=== PATIENT | female | born 1940 | race Caucasian/White ===

== ENCOUNTER → 2018-05-31 | Day surgery (SDC) | payer OTHER ==
[2018-05-30 15:54] LABS: BASOPHILS # (AUTO) 0.1 (0.0-0.1); BASOPHILS % 0.7 % (0.0-1.0); EOSINOPHILS # (AUTO) 0.1 (0.0-0.4); EOSINOPHILS % 0.9 % (0.0-6.0); HEMOGLOBIN 10.8 g/dL (12.0-16.0); LYMPHOCYTES # (AUTO) 2.3 (1.0-3.2); LYMPHOCYTES % 30.4 % (18.0-39.1); MEAN CORPUSCULAR HEMOGLOBIN 30.4 pg (28-32); MEAN CORPUSCULAR HGB CONC 32.7 g/dL (31-35); MONOCYTES # (AUTO) 0.7 (0.2-0.8); MONOCYTES % 8.8 % (4.4-11.3); NEUTROPHILS # (AUTO) 4.4 (2.1-6.9); NEUTROPHILS % 58.9 % (38.7-80.0); PLATELET COUNT 261 x10e3/uL (140-360); RED BLOOD COUNT 3.55 x10e6/uL (3.6-5.1); RED CELL DISTRIBUTION WIDTH 13.2 % (11.7-14.4)
--- NOTE | 2018-05-30 16:21 | Diagnostic Imaging Report ---
PROCEDURE: Frontal and lateral views of the chest. COMPARISON: None available. INDICATIONS: PREOP CARPAL TUNNEL FINDINGS: Lines/tubes: None. Lungs: The lungs are well inflated and clear. There is no evidence of pneumonia or pulmonary edema. Pleura: There is no pleural effusion or pneumothorax. Heart and mediastinum: The heart and the mediastinum are normal. Bones: No acute bony abnormality. Degenerative changes of thoracic spine. IMPRESSION: 1. No acute cardiopulmonary disease. Dictated by: Emmanuel Rowland M.D. on 05/30/2018 at 16:27 Electronically approved by: Emmanuel Rowland M.D. on 05/30/2018 at 16:27
[~2018-05-31] MED LIST: ADVAIR; ASPIRIN325 MG PO; BENAZEPRIL HCL10 MG PO; BUPIVACAINE HCL 0.5% INJ 30 ML VIAL INJ ONE; CEFAZOLIN SOD 1 GM VIAL ONE; DEXAMETHASONE SOD PHOS INJ 4 MG/ML VIAL ONE; FENTANYL CITRATE/PF 100MCG/2 ML INJ ONE; GLIMEPIRIDE2 MG PO; KETOROLAC TROMETHAMINE 30 MG/ML VIAL ONE; LEXAPRO10 MG PO; LIDOCAINE HCL 2% LOCAL INJ 5 ML SDV VIAL INJ ONE; LOVASTATIN40 MG PO; MORPHINE SULFATE 2 MG/ML SYR ONE; NIFEDICAL XL30 MG PO; NORCO 10-325 T1 EACH PO; NORCO 7.5-3251 EACH PO; ONDANSETRON HCL INJ 2 MG/ML VIAL ONE; PROPOFOL IV EMULSION 10 MG/ML 20 ML VIAL ONE; SEVOFLURANE INHAL SOLN 250 ML PEN BTL ONE; VENTOLIN HFA18 GM IH
[2018-05-31 09:36] VITALS: BP 120/75
--- NOTE | 2018-05-31 09:59 | Operative Report ---
DATE OF PROCEDURE: May 31, 2018 PREOPERATIVE DIAGNOSIS: Left carpal tunnel syndrome. POSTOPERATIVE DIAGNOSES 1. Left carpal tunnel syndrome. 2. Flexor tenosynovitis, left wrist. PROCEDURES 1. Left open carpal tunnel release. 2. Flexor tenosynovectomy, left wrist. ANESTHESIA: General. HISTORY: The patient is a 77-year-old female with EMG-proven left carpal tunnel syndrome. Risks, benefits and alternatives of treatment were discussed with the patient. The patient is prepared to undergo the procedure as outlined. PROCEDURE: The patient was brought to the operating theater. After the induction of adequate general inhalation anesthesia, the patient was prepped and draped in the supine position. A time out was performed by the entire operating room team. A 2.5-cm incision was marked out in the intrathenar space. The left upper extremity was exsanguinated and a tourniquet was inflated to a pressure of 250 mmHg. The incision was made through the skin and subcutaneous tissues and all venous tributaries were controlled with bipolar cautery. The incision was deepened through the palmar fascia until the transverse carpal ligament was identified. The ligament was sharply sectioned, taking care to protect and preserve the median nerve underlying it. After the complete width of the ligament had been transected, the distal volar forearm fascia was divided under direct view. Proliferative flexor tenosynovium was noticed to encompass the median nerve and this was radically excised. After performing this maneuver, the nerve was noted to lie adequately decompressed. The wound was copiously irrigated with bacteriostatic saline, closed with 5-0 nylon in an interrupted horizontal mattress fashion. A Marcaine field block was performed at the operative site. Tourniquet was deflated. All of the fingers pinked up nicely and a sterile bulking conforming bandage was applied to the hand and the wrist. A fiberglass splint was fashioned to maintain the wrist in a modest amount of extension. This was held in place with a loosely wrapped Randall wrap. The patient tolerated the procedure well and was brought to the recovery room in satisfactory condition and discharged with a postoperative instruction sheet as well as a followup appointment. Job#: [id number]
== END | disposition home or self-care (01) ==
LOC: OR 06:14
PROVIDERS: ATTEND Plastic Surgery
DX: G56.02 Carpal tunnel syndrome, left upper limb (principal); M65.842 Other synovitis and tenosynovitis, left hand; I10 Essential (primary) hypertension; J45.909 Unspecified asthma, uncomplicated; E11.9 Type 2 diabetes mellitus without complications; M19.90 Unspecified osteoarthritis, unspecified site; M81.0 Age-related osteoporosis without current pathological fracture; F41.9 Anxiety disorder, unspecified; Z01.810 Encounter for preprocedural cardiovascular examination; Z01.812 Encounter for preprocedural laboratory examination; Z01.818 Encounter for other preprocedural examination; Z96.652 Presence of left artificial knee joint
CPT/HCPCS: 25115; 36415 ×2; 71046; 82948; 85025; 93005; J0690; J1100; J1885; J2001; J2270; J2405

== ENCOUNTER → 2018-10-18 | Day surgery (SDC) | payer OTHER ==
[2018-10-12 15:16] LABS: BASOPHILS % 0.5 % (0.0-1.0); EOSINOPHILS # (AUTO) 0.3 (0.0-0.4); EOSINOPHILS % 3.4 % (0.0-6.0); HEMOGLOBIN 10.8 g/dL (12.0-16.0); LYMPHOCYTES % 34.2 % (18.0-39.1); MEAN CORPUSCULAR HEMOGLOBIN 30.3 pg (28-32); MEAN CORPUSCULAR HGB CONC 32.7 g/dL (31-35); MEAN CORPUSCULAR VOLUME 92.7 fL (81-99); MONOCYTES # (AUTO) 0.8 (0.2-0.8); MONOCYTES % 8.6 % (4.4-11.3); NEUTROPHILS # (AUTO) 4.7 (2.1-6.9); PLATELET COUNT 250 x10e3/uL (140-360); RED BLOOD COUNT 3.56 x10e6/uL (3.6-5.1); RED CELL DISTRIBUTION WIDTH 12.5 % (11.7-14.4)
[2018-10-12 15:31] LABS: ANION GAP 15.9 mmol/L (8-16); CALCIUM 9.6 mg/dL (8.4-10.2); CREATININE, SERUM 1.66 mg/dL (0.57-1.11); POTASSIUM 4.9 mmol/L (3.5-5.1)
[~2018-10-18] MED LIST changes: -BUPIVACAINE HCL 0.5% INJ 30 ML VIAL INJ ONE; +CALCIUM ACETAT667 MG PO; -CEFAZOLIN SOD 1 GM VIAL ONE; +CEFAZOLIN SOD 1 GM/D5W 50ML 50 ML IV ONE; +HYDRALAZINE HCL25 MG PO; -MORPHINE SULFATE 2 MG/ML SYR ONE
[2018-10-18 12:25] VITALS: BP 5/3
--- NOTE | 2018-10-18 13:22 | Operative Report ---
DATE OF PROCEDURE: October 18, 2018 AERODYNAMICS TEACHER: Shreyas Schwab PA-C The patient was brought to the operating room for induction of anesthesia. Throughout this case, my PA's assistance was necessary for retraction of soft tissue and positioning of the extremity. This allows for efficient and technically successful execution of the operation and is considered medically necessary. PREOPERATIVE DIAGNOSIS: Right carpal tunnel syndrome. POSTOPERATIVE DIAGNOSIS: Right carpal tunnel syndrome. PROCEDURE: Right endoscopic carpal tunnel release. INDICATIONS: The patient is a 78-year-old lady who has chronic signs and symptoms consistent with right carpal tunnel syndrome. She has failed conservative management and would like to proceed with definitive intervention. The risks and benefits of endoscopic versus open carpal tunnel release have been explained. She states she understands and wishes to proceed. PROCEDURE: The patient was brought to the operating room. She was placed under general anesthetic. Prophylactic antibiotics were given in the holding area. The upper extremity was prepped and draped in a sterile manner. A well-padded tourniquet was placed on the upper arm and inflated to 250 mmHg. An operative time out was performed. A 1-cm incision was made over the flexion crease of the wrist. The palmaris longus was retracted to the radial side of the wound. The flexor retinaculum was elevated and incised with a pair of sharp tenotomy scissors. An elevator was used to tease the tenosynovium off the undersurface of the transverse carpal ligament. Dilators were placed, and the hook of the hamate was palpated. The Micro-Aire endoscope was then placed into the carpal tunnel. The undersurface of the ligament was cleanly visualized without evidence of soft tissue interposition. The knife was deployed, and the ligament was cut from distal to proximal. Full-thickness cut was noted. The proximal retinaculum was then incised under direct visualization using a pair of blunt Metzenbaum scissors. The wound was irrigated and closed with 2 interrupted 4-0 nylon stitches. A sterile bandage was applied, and the patient was extubated. The patient was transferred to the recovery room in stable condition. Blood loss was less than 5 mL, and at the end of the procedure needle and sponge counts were correct. Job#: [id number] BABAK
== END | disposition home or self-care (01) ==
LOC: OR 06:22
PROVIDERS: ATTEND Specialist
DX: G56.01 Carpal tunnel syndrome, right upper limb (principal); J45.909 Unspecified asthma, uncomplicated; E78.5 Hyperlipidemia, unspecified; E11.22 Type 2 diabetes mellitus with diabetic chronic kidney disease; I12.9 Hypertensive chronic kidney disease with stage 1 through stage 4 chronic kidney disease, or unspecified chronic kidney disease; N18.9 Chronic kidney disease, unspecified; Z91.018 Allergy to other foods; Z01.810 Encounter for preprocedural cardiovascular examination; Z01.812 Encounter for preprocedural laboratory examination
CPT/HCPCS: 29848; 36415; 80048; 85025; 93005; J0690; J1100; J1885; J2001; J2405; J2704

== ENCOUNTER → 2019-11-16 | Outpatient (CLI) | payer OTHER ==
[~2019-11-16] MED LIST changes: -CEFAZOLIN SOD 1 GM/D5W 50ML 50 ML IV ONE; -DEXAMETHASONE SOD PHOS INJ 4 MG/ML VIAL ONE; -FENTANYL CITRATE/PF 100MCG/2 ML INJ ONE; -KETOROLAC TROMETHAMINE 30 MG/ML VIAL ONE; -LIDOCAINE HCL 2% LOCAL INJ 5 ML SDV VIAL INJ ONE; -ONDANSETRON HCL INJ 2 MG/ML VIAL ONE; -PROPOFOL IV EMULSION 10 MG/ML 20 ML VIAL ONE; -SEVOFLURANE INHAL SOLN 250 ML PEN BTL ONE
== END ==
LOC: RAD 12:49
PROVIDERS: ATTEND Family Medicine
DX: I35.0 Nonrheumatic aortic (valve) stenosis (principal)
CPT/HCPCS: 93306

== ENCOUNTER 2020-09-04 10:42 | Emergency (ER) | payer MEDICARE, OTHER ==
[~2020-09-04] VITALS: Ht 160 cm; Wt 77.1 kg
--- OUTSIDE RECORDS SUMMARY | 2020-09-04 11:47 | XMS REPORT | Continuity of Care Document ---
Author Author [facility] Organization [facility] Address [address] [place] [address] Phone Unavailable Care Team Providers Care Cnc Technician Name Role Phone ULYSSES GAYTAN Attkasies Unavailable Problems This patient has no known problems. Allergies, Adverse Reactions, Alerts This patient has no known allergies or adverse reactions. Medications This patient has no known medications. Procedures This patient has no known procedures. Results Test Description Test Time Test Comments Results Result Comments Source BREAST ULTRASOUND RIGHT 2020-04-18 10:40:25 - [facility] ULTRASOUND RIGHTULTRASOUND OF RIGHT BREAST: 04/17/2020CLINICAL: Abnormal mammogram. Comparison is made to exams dated 03/12/2020 mammogram and 09/11/2015 ultrasound - [facility]-. Color flow and real-time ultrasound of the right breast were performed. Quach scale images of the real-time examination were reviewed. Breast tissue has scattered fibroglandular. Targeted ultrasound d emonstrates a 5 mm septated cyst at 9:00, 7 cm from nipple correlating with the mammographic masses, benign. The rest of the right breast survey ultrasound is negative. No axillary lymphadenopathy.IMPRESSION: BENIGN There is no sonographic evidence of malignancy. Resume annual screening mammography in one year. Miguel Praks M.D. ss/:04/18/2020 10:40:25 Entry: cl - 04/18/2020 10:40:25Imaging Technologist: Missy SHIRLEY, [facility]-FWletter sent: BIRADS 1-2 Normal Ultrasound BI-RADS: 2 Benign SCR MAMM BILATERAL IFTIKHAR CAD DIGITAL 2020-03-13 08:49:41 - SCR MAMM BILATERAL IFTIKHAR CAD DIGITALBILATERAL DIGITAL SCREENING MAMMOGRAM 3D/2D WITH CAD: 03/12/2020CLINICAL: Asymptomatic. Digital breast tomosynthesis was performed in addition to routine CC and MLO views. Current mammographic images were evaluated by either a [employer] M-Vu or a [employer] ImageChecker CAD (computer aided detection system). Comparison is made to exams dated 11/11/2018 mammogram, 09/10 mammogram, and 09/14/2016 mammogram - [facility]-. There are scattered fibroglandular tissues in both breasts. Oval, circumscribed low density mass, possibly an intramammary lymph node at 9 o'clock, 7 cm from the nipple, in the right breast.No suspicious mass, architectural distortion, malignant type calcification, or lymph node abnormality detected in the left breast. IMPRESSION: INCOMPLETE: ADDITIONAL IMAGING EVALUATION NEEDEDOval, circumscribed low density mass, possibly an intramammary lymph node at 9 o'clock, 7 cm from the nipple, in the right breast. Initial evaluation with ultrasound and possible spot compression tomosynthesis are recommended at this time.Miguel Parks M.D. ss/:03/13/2020 08:49:41 Rock Crushing Machine Operator: Flor SHIRLEY [facility]-letter sent: Additional Imaging Mammogram BI-RADS: 0 Incomplete: Additional Imaging Evaluation Needed SCR MAMM BILATERAL IFTIKHAR CAD DIGITAL 2018-11-14 09:56:33 - SCR MAMM BILATERAL IFTIKHAR CAD DIGITALBILATERAL DIGITAL SCREENING MAMMOGRAM 3D/2D WITH CAD: 11/11/2018CLINICAL: Asymptomatic. Digital breast tomosynthesis was performed in addition to routine CC and MLO views. Current mammographic images were evaluated by either a [employer] M-Vu or a [employer] ImageChecker CAD (computer aided detection system). Comparison is made to exams dated 09/27/2017 mammogram, mammogram, and 08/30/2015 mammogram - [facility]-. There are scattered fibroglandular tissues in both breasts. No suspicious mass, architectural distortion, malignant type calcification, or lymph node abnormality detected. Breast architecture is stable compared to prior exams.IMPRESSION: NEGATIVEThere is no mammographic evidence of malignancy. Resume annual screening mammography in one year. Miguel Parks M.D. ss/penrad:11/14/2018 09:56:33 Rock Crushing Machine Operator: Flor SHIRLEY [facility]-letter sent: BIRADS 1-2 Normal Mammogram BI-RADS: 1 Negative CHEST 2 VIEWS 2018-05-30 16:27:00 [facility] [address] [address] Patient Name: LINDSEY AUSTIN MR #: [id number] : 1940 Age/Sex: 77/F Req #: [id number] Adm Physician: Ordered by: YAAKOV CALDERON MD Report #: [id number] Location: OR Room/Bed: Procedure: [id number] DX/CHEST 2 VIEWS Exam Date: 05/30/18 Exam Time: 1421 REPORT STATUS: Signed PROCEDURE: Frontal and lateral views of the chest. COMPARISON: None available. INDICATIONS: PREOP CARPAL TUNNEL FINDINGS: Lines/tubes: None. Lungs: The lungs are well inflated and clear. There is no evidence of pneumonia or pulmonary edema. Pleura: There is no pleural effusion or pneumothorax. Heart and mediastinum: The heart and the mediastinum are normal. Bones: No acute bony abnormality. Degenerative changes of thoracic spine. IMPRESSION: 1. No acute cardiopulmonary disease. Dictated by: Emmanuel Prado M.D. on 05/30/2018 at 16:27 Electronically approved by: Emmanuel Prado M.D. on 05/30/2018 at 16:27 Dictated By: EMMANUEL PRADO MD 26 Transcribed By: KANDY on 05/30/181626 COPY TO: YAAKOV CALDERON MD
[2020-09-04 11:54] LABS: BASOPHILS % 0.5 % (0.0-1.0); EOSINOPHILS # (AUTO) 0.1 (0.0-0.4); EOSINOPHILS % 0.9 % (0.0-6.0); HEMATOCRIT 30.7 % (34.2-44.1); HEMOGLOBIN 9.7 g/dL (12.0-16.0); LYMPHOCYTES # (AUTO) 1.9 (1.0-3.2); LYMPHOCYTES % 22.4 % (18.0-39.1); MEAN CORPUSCULAR HEMOGLOBIN 30.2 pg (28-32); MEAN CORPUSCULAR HGB CONC 31.6 g/dL (31-35); MEAN CORPUSCULAR VOLUME 95.6 fL (81-99); MONOCYTES # (AUTO) 0.5 (0.2-0.8); NEUTROPHILS # (AUTO) 5.9 (2.1-6.9); NEUTROPHILS % 69.7 % (38.7-80.0); PLATELET COUNT 248 x10e3/uL (140-360); RED BLOOD COUNT 3.21 x10e6/uL (3.6-5.1); RED CELL DISTRIBUTION WIDTH 13.2 % (11.7-14.4)
[2020-09-04 12:06] LABS: ANION GAP 13.1 mmol/L (8-16); CALCIUM 9.1 mg/dL (8.4-10.2); CREATININE, SERUM 1.94 mg/dL (0.57-1.11); POTASSIUM 5.1 mmol/L (3.5-5.1)
--- NOTE | 2020-09-04 12:12 | Emergency Department Note ---
History of Present Illnes History of Present Illness Chief Complaint: Genitourinary History of Present Illness This is a 80 year old female Chief Complaint Comment PT DENIES ANY COMPLAINTS RIGHT NOW. PTS DAUGHTER STATES THAT SHE WAS DX WITH DEMENTIA 3 DAYS AGO, BUT HAS HAD A RAPID PROGRESSIVE DECLINE WITH MEMORY LOSS THAT WAXES AND WANES. PTS DAUGHTER STATES THAT SHE COULDNT REMEMBER FAMILY NAMES YESTERDAY. DAUGHTER ALSO STATES THAT SHE HAS BEEN OVERMEDICATING INCLUDING NARCOTICS. Historian: Patient, Family Member Arrival Mode: Car Network Operations Analyst Required: No Onset (how long ago): day(s) (1) Location: Generalized Quality: confusion Radiation: Reports non-radiation Severity: moderate Onset quality: sudden Duration (how long): day(s) Timing of current episode: sporadic Progression: unchanged Chronicity: new Context: Denies recent illness, Denies recent surgery Relieving factors: none Exacerbating factors: none Associated symptoms: Reports denies other symptoms Treatments prior to arrival: none Past Medical/Family History Physician Review I have reviewed the patient's past medical and family history. Any updates have been documented here. Past Medical History Recent Fever: No Clinical Suspicion of Infectio: No New/Unexplained Change in Ment: No Review of Systems Review of Systems Constitutional: Reports no symptoms EENTM: Reports no symptoms Cardiovascular: Reports no symptoms Respiratory: Reports no symptoms Gastrointestinal: Reports no symptoms Genitourinary: Reports no symptoms Musculoskeletal: Reports no symptoms Integumentary: Reports no symptoms Neurological: Reports no symptoms Psychological: Reports no symptoms Endocrine: Reports no symptoms Hematological/Lymphatic: Reports no symptoms Physical Exam Related Data Allergies: Coded Allergies: tree nut (Verified Allergy, Severe, 10/13/18) SOB, ANAPHYLACTIC, THROAT CLOSES Triage Vital Signs Vital Signs Date Time Temp Pulse Resp B/P (MAP) Pulse Ox O2 Delivery O2 Flow Rate FiO2 09/04/20 10:54 98.8 87 20 157/58 99 Room Air Vital signs reviewed: Yes Physical Exam CONSTITUTIONAL Constitutional: Present well-developed, Present well-nourished HENT HENT: Present normocephalic, Present atraumatic, Present oropharynx jun ar/moist, Present nose normal HENT L/R: Present left ext ear normal, Present right ext ear normal EYES Eyes: Reports PERRL, Reports conjunctivae normal NECK Neck: Present ROM normal PULMONARY Pulmonary: Present effort normal, Present breath sounds normal CARDIOVASCULAR Cardiovascular: Present regular rhythm, Present heart sounds normal, Present capillary refill normal, Present normal rate GASTROINTESTINAL Abdominal: Present soft, Present nontender, Present bowel sounds normal GENITOURINARY Genitourinary: Present exam deferred SKIN Skin: Present warm, Present dry MUSCULOSKELETAL Musculoskeletal: Present ROM normal NEUROLOGICAL Neurological: Present alert, Present oriented x 3, Present no gross motor or sensory deficits PSYCHOLOGICAL Psychological: Present mood/affect normal, Present judgement normal Results Laboratory Result Diagram: 09/04/20 1138 09/04/20 1138 Laboratory Laboratory Tests Test 09/04/20 11:38 White Blood Count 8.50 x10e3/uL (4.8-10.8) Red Blood Count 3.21 x10e6/uL (3.6-5.1) Hemoglobin 9.7 g/dL (12.0-16.0) Hematocrit 30.7 % (34.2-44.1) Mean Corpuscular Volume 95.6 fL (81-99) Mean Corpuscular Hemoglobin 30.2 pg (28-32) Mean Corpuscular Hemoglobin Concent 31.6 g/dL (31-35) Red Cell Distribution Width 13.2 % (11.7-14.4) Platelet Count 248 x10e3/uL (140-360) Neutrophils (%) (Auto) 69.7 % (38.7-80.0) Lymphocytes (%) (Auto) 22.4 % (18.0-39.1) Monocytes (%) (Auto) 6.0 % (4.4-11.3) Eosinophils (%) (Auto) 0.9 % (0.0-6.0) Basophils (%) (Auto) 0.5 % (0.0-1.0) Neutrophils # (Auto) 5.9 (2.1-6.9) Lymphocytes # (Auto) 1.9 (1.0-3.2) Monocytes # (Auto) 0.5 (0.2-0.8) Eosinophils # (Auto) 0.1 (0.0-0.4) Basophils # (Auto) 0.0 (0.0-0.1) Absolute Immature Granulocyte (auto 0.04 x10e3/uL (0-0.1) Sodium Level 140 mmol/L (136-145) Potassium Level 5.1 mmol/L (3.5-5.1) Chloride Level 113 mmol/L (98-107) Carbon Dioxide Level 19 mmol/L (22-29) Anion Gap 13.1 mmol/L (8-16) Blood Urea Nitrogen 28 mg/dL (7-26) Creatinine 1.94 mg/dL (0.57-1.11) Estimat Glomerular Filtration Rate 25 ML/MIN (60-) BUN/Creatinine Ratio 14 (6-25) Glucose Level 138 mg/dL (74-118) Lactic Acid Level < 0.2 mmol/L (0.5-2.0) Calcium Level 9.1 mg/dL (8.4-10.2) Total Bilirubin 0.5 mg/dL (0.2-1.2) Aspartate Amino Transf (AST/SGOT) 32 IU/L (5-34) Alanine Aminotransferase (ALT/SGPT) 42 IU/L (0-55) Alkaline Phosphatase 41 IU/L (40-150) Total Protein 7.0 g/dL (6.5-8.1) Globulin 6.6 g/dL (2.3-3.5) Lab results reviewed: Yes Imaging Imaging results reviewed: Yes Diagnostics Tests Diagnostic test(s) reviewed: Yes Assessment & Plan Medical Decision Making MDM 80-year-old female past medical history significant for recent diagnosis of dementia presents to emergency department for acute onset confusion starting 3 days ago. Patient states she has no complaints and is alert and oriented. Per daughter she has been intermittently forgetful. Examination is largely benign. Initial differential includes intracerebral etiology versus infection versus dementia versus delirium. 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 Work up benign. Doubt other emergent cause for her AMS and Dx favors dementia with excessive opioid use. She will decrease opioid use and f/u w/ Dr. Kaba in Clinic. Reassessment Reassessment time: 12:12 Reassessment Well appearing, NAD Assessment & Plan Final Impression: (1) Confusion Depart Disposition: HOME, SELF-CARE Last Vital Signs Date Time Temp Pulse Resp B/P (MAP) Pulse Ox O2 Delivery O2 Flow Rate FiO2 09/04/20 10:54 98.8 87 20 157/58 99 Room Air Home Meds Reported Medications Calcium Acetate (CALCIUM ACETATE) 667 Mg Tablet, 667 MG PO DAILY, CAP 10/12/18 Hydrocodone Bit/Acetaminophen (NORCO 10-325 TABLET) 1 Each Tablet, 1 TAB PO PRN 10/12/18 Escitalopram Oxalate (LEXAPRO) 10 Mg Tablet, 10 MG PO DAILY, #30 TAB 10/12/18 Hydralazine Hcl (HYDRALAZINE HCL) 25 Mg Tab, 50 MG PO DAILY, TAB 10/12/18 Albuterol Sulfate (VENTOLIN HFA) 18 Gm Hfa.aer.ad, 1 IH PRN 07/17/16 Lovastatin (LOVASTATIN) 40 Mg Tablet, 40 MG PO HS THERAPEUTICALLY SUBSTITUTED WITH SIMVASTATIN 20MG 07/17/16 Nifedipine (NIFEDICAL XL) 30 Mg Tab.er.24, 90 MG PO DAILY, TAB 07/17/16 Benazepril Hcl (BENAZEPRIL HCL) 10 Mg Tablet, 40 MG PO DAILY, #30 TAB 07/17/16 PERFECTO NGUYEN MD Sep 04, 2020 12:12
[2020-09-04 12:22] LABS: ALBUMIN 4.1 g/dL (3.5-5.0); ALBUMIN/GLOBULIN RATIO 1.4 (0.8-2.0)
[2020-09-04] MEDS ORDERED: LACTATED RINGER'S 1,000 ML ONE (12:24)
--- NOTE | 2020-09-04 12:34 | Diagnostic Imaging Report ---
CT BRAIN WO HISTORY: Altered mental status COMPARISON: None. Technique: Noncontrast axial scans were obtained from skull base to the vertex. Coronal and sagittal reconstructions obtained from the axial data. One or more of the following dose reduction techniques were used: Automated exposure control, adjustment of the mA and/or kV according to patient size, and/or utilization of iterative reconstruction technique. DISCUSSION: Scalp/Skull: Unremarkable. Brain sulci: Prominent. Ventricles: Compensatory dilatation. Extra-axial spaces: No masses or fluid collections. Carotid siphon calcifications are present. Parenchyma: Mild bilateral deep white matter hypodensity is likely chronic microvascular ischemic change. Otherwise, no masses, hemorrhage, or large vascular territory acute infarct. Dural sinuses: No abnormal densities. Sellar/Suprasellar region: Intact. Skull base: Intact. Incidental findings: None. IMPRESSION: 1. No acute intracranial abnormalities. 2. Mild supratentorial chronic microvascular ischemic change. Generalized cerebral volume loss. Signed by: Dr. Solomon Armstrong M.D. on 09/04/2020 12:30 PM
--- NOTE | 2020-09-04 12:47 | Diagnostic Imaging Report ---
EXAMINATION: CHEST SINGLE (PORTABLE) INDICATION: Chills COMPARISON: None FINDINGS: LINES/TUBES:None LUNGS:The lungs are well-inflated. No focal consolidation or pulmonary edema. PLEURA:No pleural effusion or pneumothorax. MEDIASTINUM:The cardiomediastinal silhouette appears normal in size and shape. BONES/SOFT TISSUES:No acute osseous injury. ABDOMEN:No free air under the diaphragm. IMPRESSION: No focal pneumonia or pulmonary edema. Signed by: Fred Sweeney MD on 09/04/2020 12:43 PM
[2020-09-04 13:57] LABS: BILIRUBIN,URINE NEGATIVE (NEGATIVE); CLARITY,URINE CLEAR (CLEAR); COLOR,URINE YELLOW (YELLOW); EPITHELIAL CELLS,URINE FEW /LPF; KETONES,URINE NEGATIVE (NEGATIVE); LEUKOCYTE ESTERASE ,URINE NEGATIVE (NEGATIVE); MUCUS,URINE FEW (RARE); NITRITE,URINE NEGATIVE (NEGATIVE); PROTEIN,URINE DIPSTICK NEGATIVE (NEGATIVE); RBC,URINE 0-5 /HPF (0-5); URINE UROBILINOGEN 0.2 mg/dL (0.2 - 1); WBC,URINE (MAN) 0-5 /HPF (0-5)
== END 2020-09-04 15:23 | disposition home or self-care (01) ==
LOC: ER 11:15
DX: R41.0 Disorientation, unspecified (principal)
CPT/HCPCS: 36415; 70450; 71045; 80053; 81001; 83605; 84484; 85025; 87086; 99283; J7121